=== PATIENT | female | born 1940 | race Caucasian/White ===

== ENCOUNTER 2021-12-30 13:01 | Inpatient (IN) ==
[2021-12-30] MEDS ORDERED: MAGNESIUM HYDROXIDE SUSP 30 ML UDCUP PO PRN (13:34)
[2021-12-30 17:41] LABS: Basophils # 0.1 10*3/uL (0.0-0.2); Basophils % 0.7 % (0.0-0.8); Hematocrit 30.5 VOL% (35.7-47.0); Hemoglobin 9.7 GM/DL (12.0-16.0); Immature Granulocytes % 1.3 %; Immature Granulocytes Absolute 0.13 #; Lymphocytes # 0.8 10*3/uL (1.4-4.0); Lymphocytes % 7.5 % (21.3-54.2); Mean Corpuscular HGB Conc 31.8 GM/DL (32-36); Mean Corpuscular Volume 93.6 FL (87-102); Mean Platelet Volume 9.7 FL (9.6-12.0); Monocytes % 11.1 % (1.7-12.7); Neutrophils % 79.4 % (38.7-73.9); Platelet Count 399 T/CUMM (130-400); Red Blood Count 3.26 MC/CUMM (3.8-5.5); Red Cell Distribution Width 13.3 % (9.3-17.3); White Blood Count 10.1 T/CUMM (4-12)
[2021-12-30] MEDS: DEXTROSE 5% NACL 0.45% 1,000 ML IV SCH (17:45)
[2021-12-30 17:55] LABS: Albumin 2.6 G/DL (3.4-5.0); Bilirubin,Total 0.6 MG/DL (0.20-1.00); Calcium 9.6 MG/DL (8.5-10.1); Osmolality,Calculated 280.8 MOS/KG (273-304); Potassium 3.6 MMOL/L (3.5-5.1); Total Protein 6.8 G/DL (6.4-8.2)
[2021-12-30 19:23] LABS: Bacteria,Urine Occasional /HPF (Few); Bilirubin,Urine Negative (Negative); Blood, Urine Negative (Negative); Glucose,Urine (UA) Negative (Negative); Hyaline Casts,Urine 4 /LPF (0-3); Ketones,Urine Negative (Negative); Nitrite,Urine Negative (Negative); Protein,Urine Negative (Negative); RBC,Urine 6 /HPF (0-4); Squamous Epithelial Cell,Urine Occasional /HPF (0-10); Urine Appearance Clear (Clear); Urine Color Yellow (Yellow); Urine Urobilinogen 0.2 eU/dL (<2.0); Urine pH 5.5 (4.5-8.0)
[2021-12-30 19:24] LABS: Mucus,Urine Occasional /LPF (Occasional)
[2021-12-30 19:25] LABS: Band Neutrophils 34 % (0-10); Lymphocytes 12 % (20-55); Metamyelocytes 6 %; Myelocytes 4 %; Platelet Estimate Normal; Segmented Neutrophils 34 % (50-85); Total Cells Counted 100
[2021-12-30 19:29] LABS: Toxic Granulation 3+
[2021-12-30] MEDS: ENOXAPARIN 30 MG/0.3 ML SYRINGE SUBCUT SCH (21:11)
[2021-12-30] MEDS: FLECAINIDE 50 MG TABLET PO SCH (21:11)
[2021-12-30] MEDS: SPIRONOLACTONE 50 MG TABLET PO SCH (21:12)
[2021-12-30] MEDS: ACETAMINOPHEN 325 MG TABLET PO PRN (21:16)
[2021-12-31] MEDS: VANCOMYCIN 125 MG CAPSULE PO SCH ×4 (00:09→18:09)
[2021-12-31 05:15] LABS: Basophils # 0.1 10*3/uL (0.0-0.2); Basophils % 0.8 % (0.0-0.8); Eosinophils % 0.2 % (0.00-10.9); Hematocrit 25.9 VOL% (35.7-47.0); Hemoglobin 8.3 GM/DL (12.0-16.0); Immature Granulocytes % 1.8 %; Immature Granulocytes Absolute 0.16 #; Lymphocytes % 11.2 % (21.3-54.2); Mean Corpuscular Volume 93.5 FL (87-102); Mean Platelet Volume 9.6 FL (9.6-12.0); Monocytes % 12.3 % (1.7-12.7); Neutrophils % 73.7 % (38.7-73.9); Platelet Count 283 T/CUMM (130-400); Red Blood Count 2.77 MC/CUMM (3.8-5.5); Red Cell Distribution Width 13.2 % (9.3-17.3); White Blood Count 8.7 T/CUMM (4-12)
[2021-12-31 05:40] LABS: Band Neutrophils 9 % (0-10); Hypochromia 1+; Lymphocytes 15 % (20-55); Microcytosis 1+; Platelet Estimate Adequate; Segmented Neutrophils 65 % (50-85); Total Cells Counted 100
[2021-12-31 05:49] LABS: Albumin 1.9 G/DL (3.4-5.0); Bilirubin,Total 0.4 MG/DL (0.20-1.00); Calcium 8.5 MG/DL (8.5-10.1); Osmolality,Calculated 287.5 MOS/KG (273-304); Potassium 3.5 MMOL/L (3.5-5.1); Risk Ratio 2.65; Total Protein 5.2 G/DL (6.4-8.2); VLDL Cholesterol 14.2 MG/DL
[2021-12-31] MEDS: DEXTROSE 5% NACL 0.45% 1,000 ML IV SCH ×2 (06:03→21:42)
[2021-12-31] MEDS: PANTOPRAZOLE 40 MG TABLET PO SCH (06:09)
[2021-12-31] MEDS: SPIRONOLACTONE 50 MG TABLET PO SCH ×2 (08:31→21:43)
[2021-12-31] MEDS: FLECAINIDE 50 MG TABLET PO SCH ×2 (08:31→21:43)
[2021-12-31] MEDS: metroNIDAZOLE INJ 500 MG/100 ML PREMIX IV SCH ×2 (08:36→18:09)
[2021-12-31] MEDS: ONDANSETRON 4 MG/2 ML VIAL IV PRN (15:12)
[2021-12-31] MEDS: ACETAMINOPHEN 325 MG TABLET PO PRN (21:43)
[2021-12-31] MEDS: ENOXAPARIN 30 MG/0.3 ML SYRINGE SUBCUT SCH (21:43)
[2021-12-31] MEDS: ZALEPLON 5 MG CAPSULE PO PRN (21:50)
[2022-01-01] MEDS: VANCOMYCIN 125 MG CAPSULE PO SCH ×4 (00:30→17:41)
[2022-01-01] MEDS: metroNIDAZOLE INJ 500 MG/100 ML PREMIX IV SCH ×3 (00:30→17:41)
[2022-01-01] MEDS: ONDANSETRON 4 MG/2 ML VIAL IV PRN ×2 (00:34→15:02)
[2022-01-01] MEDS: DEXTROSE 5% NACL 0.45% 1,000 ML IV SCH ×4 (05:00→21:30)
[2022-01-01] MEDS: PANTOPRAZOLE 40 MG TABLET PO SCH (05:29)
[2022-01-01 06:01] LABS: Basophils % 0.2 % (0.0-0.8); Eosinophils # 0.1 10*3/uL (0.0-0.87); Eosinophils % 0.8 % (0.00-10.9); Hematocrit 26.6 VOL% (35.7-47.0); Hemoglobin 8.6 GM/DL (12.0-16.0); Immature Granulocytes % 3.1 %; Immature Granulocytes Absolute 0.34 #; Lymphocytes # 0.6 10*3/uL (1.4-4.0); Lymphocytes % 5.2 % (21.3-54.2); Mean Corpuscular HGB Conc 32.3 GM/DL (32-36); Mean Platelet Volume 9.5 FL (9.6-12.0); Monocytes % 9.2 % (1.7-12.7); Neutrophils % 81.5 % (38.7-73.9); Platelet Count 332 T/CUMM (130-400); Red Blood Count 2.86 MC/CUMM (3.8-5.5); Red Cell Distribution Width 13.4 % (9.3-17.3); White Blood Count 10.8 T/CUMM (4-12)
[2022-01-01 06:20] LABS: Albumin 1.6 G/DL (3.4-5.0); Bilirubin,Total 0.5 MG/DL (0.20-1.00); Calcium 8.3 MG/DL (8.5-10.1); Potassium 3.6 MMOL/L (3.5-5.1); Total Protein 4.8 G/DL (6.4-8.2)
[2022-01-01 06:27] LABS: Band Neutrophils 10 % (0-10); Hypochromia Slight; Lymphocytes 6 % (20-55); Myelocytes 1 %; Promyelocytes 1 %; Segmented Neutrophils 76 % (50-85); Total Cells Counted 100
[2022-01-01 06:28] LABS: Microcytosis 1+
[2022-01-01] MEDS: FLECAINIDE 50 MG TABLET PO SCH ×2 (08:19→21:30)
[2022-01-01] MEDS: SPIRONOLACTONE 50 MG TABLET PO SCH ×2 (08:19→21:30)
[2022-01-01] MEDS: ENOXAPARIN 30 MG/0.3 ML SYRINGE SUBCUT SCH (21:30)
[2022-01-01] MEDS: ZALEPLON 5 MG CAPSULE PO PRN (21:32)
[2022-01-02] MEDS: metroNIDAZOLE INJ 500 MG/100 ML PREMIX IV SCH ×3 (00:24→18:14)
[2022-01-02] MEDS: VANCOMYCIN 125 MG CAPSULE PO SCH ×4 (00:24→18:11)
[2022-01-02] MEDS: ONDANSETRON 4 MG/2 ML VIAL IV PRN (00:26)
[2022-01-02 05:16] LABS: Basophils % 0.1 % (0.0-0.8); Eosinophils # 0.3 10*3/uL (0.0-0.87); Eosinophils % 2.3 % (0.00-10.9); Hemoglobin 8.9 GM/DL (12.0-16.0); Immature Granulocytes % 3.6 %; Lymphocytes # 0.3 10*3/uL (1.4-4.0); Lymphocytes % 2.9 % (21.3-54.2); Mean Corpuscular HGB Conc 31.8 GM/DL (32-36); Mean Corpuscular Volume 91.5 FL (87-102); Mean Platelet Volume 9.7 FL (9.6-12.0); Monocytes % 6.1 % (1.7-12.7); Platelet Count 327 T/CUMM (130-400); Red Blood Count 3.06 MC/CUMM (3.8-5.5); Red Cell Distribution Width 13.5 % (9.3-17.3); White Blood Count 11.1 T/CUMM (4-12)
[2022-01-02] MEDS: PANTOPRAZOLE 40 MG TABLET PO SCH (05:46)
[2022-01-02] MEDS: DEXTROSE 5% NACL 0.45% 1,000 ML IV SCH ×3 (05:46→18:13)
[2022-01-02 06:38] LABS: Eosinophils 2 % (0-10); Lymphocytes 8 % (20-55); Platelet Estimate Adequate; Segmented Neutrophils 82 % (50-85); Total Cells Counted 100
[2022-01-02] MEDS: SPIRONOLACTONE 50 MG TABLET PO SCH ×2 (10:09→21:01)
[2022-01-02] MEDS: FLECAINIDE 50 MG TABLET PO SCH (10:09)
[2022-01-02] MEDS: LOSARTAN 50 MG TABLET PO SCH (10:10)
[2022-01-02] MEDS ORDERED: FLECAINIDE 50 MG TABLET PO ONE (11:00)
[2022-01-02] MEDS: ENOXAPARIN 30 MG/0.3 ML SYRINGE SUBCUT SCH (21:01)
[2022-01-02] MEDS: ZALEPLON 5 MG CAPSULE PO PRN (21:01)
[2022-01-02] MEDS: FLECAINIDE 100 MG TABLET PO SCH (21:10)
[2022-01-03] MEDS: ACETAMINOPHEN 325 MG TABLET PO PRN (00:06)
[2022-01-03] MEDS: VANCOMYCIN 125 MG CAPSULE PO SCH ×4 (00:06→17:30)
[2022-01-03] MEDS: metroNIDAZOLE INJ 500 MG/100 ML PREMIX IV SCH ×3 (00:06→18:00)
[2022-01-03] MEDS: DEXTROSE 5% NACL 0.45% 1,000 ML IV SCH ×2 (04:41→19:14)
[2022-01-03] MEDS: PANTOPRAZOLE 40 MG TABLET PO SCH (05:30)
[2022-01-03 06:54] LABS: Basophils # 0.1 10*3/uL (0.0-0.2); Basophils % 0.4 % (0.0-0.8); Eosinophils # 0.4 10*3/uL (0.0-0.87); Eosinophils % 3.8 % (0.00-10.9); Hematocrit 25.9 VOL% (35.7-47.0); Hemoglobin 8.1 GM/DL (12.0-16.0); Immature Granulocytes % 4.8 %; Immature Granulocytes Absolute 0.54 #; Lymphocytes # 0.4 10*3/uL (1.4-4.0); Lymphocytes % 3.2 % (21.3-54.2); Mean Corpuscular HGB Conc 31.3 GM/DL (32-36); Mean Corpuscular Volume 93.8 FL (87-102); Mean Platelet Volume 9.9 FL (9.6-12.0); Monocytes % 6.3 % (1.7-12.7); Neutrophils % 81.5 % (38.7-73.9); Platelet Count 250 T/CUMM (130-400); Red Blood Count 2.76 MC/CUMM (3.8-5.5); Red Cell Distribution Width 13.7 % (9.3-17.3); White Blood Count 11.2 T/CUMM (4-12)
[2022-01-03 07:19] LABS: Band Neutrophils 5 % (0-10); Eosinophils 6 % (0-10); Hypochromia 1+; Lymphocytes 1 % (20-55); Microcytosis 1+; Platelet Estimate Adequate; Segmented Neutrophils 82 % (50-85); Total Cells Counted 100
[2022-01-03 07:26] LABS: Calcium 8.3 MG/DL (8.5-10.1)
[2022-01-03 08:04] LABS: Sedimentation Rate-Westergren 51 MM/HR (0-30)
[2022-01-03] MEDS: FLECAINIDE 100 MG TABLET PO SCH ×2 (09:24→21:03)
[2022-01-03] MEDS: SPIRONOLACTONE 50 MG TABLET PO SCH ×2 (09:24→21:03)
[2022-01-03] MEDS: LOSARTAN 50 MG TABLET PO SCH (09:24)
[2022-01-03] MEDS ORDERED: POTASSIUM CHLORIDE 20 MEQ TABLET PO ONE (11:24)
[2022-01-03] MEDS ORDERED: MAGNESIUM SULF RIDER 4 GM/100 ML PREMIX IV ONE (11:24)
[2022-01-03] MEDS: ENOXAPARIN 30 MG/0.3 ML SYRINGE SUBCUT SCH (21:03)
[2022-01-03] MEDS: ZALEPLON 5 MG CAPSULE PO PRN (21:03)
[2022-01-04] MEDS: metroNIDAZOLE INJ 500 MG/100 ML PREMIX IV SCH ×4 (00:05→23:59)
[2022-01-04] MEDS: VANCOMYCIN 125 MG CAPSULE PO SCH ×5 (00:06→23:57)
[2022-01-04] MEDS: DEXTROSE 5% NACL 0.45% 1,000 ML IV SCH ×2 (04:23→17:30)
[2022-01-04 06:15] LABS: Basophils % 0.3 % (0.0-0.8); Eosinophils # 0.4 10*3/uL (0.0-0.87); Eosinophils % 4.6 % (0.00-10.9); Hematocrit 25.6 VOL% (35.7-47.0); Hemoglobin 8.3 GM/DL (12.0-16.0); Immature Granulocytes % 5.3 %; Immature Granulocytes Absolute 0.51 #; Lymphocytes # 0.5 10*3/uL (1.4-4.0); Lymphocytes % 5.4 % (21.3-54.2); Mean Corpuscular HGB Conc 32.4 GM/DL (32-36); Mean Corpuscular Volume 91.4 FL (87-102); Mean Platelet Volume 9.6 FL (9.6-12.0); Monocytes % 7.1 % (1.7-12.7); Neutrophils % 77.3 % (38.7-73.9); Platelet Count 233 T/CUMM (130-400); Red Cell Distribution Width 13.9 % (9.3-17.3); White Blood Count 9.6 T/CUMM (4-12)
[2022-01-04] MEDS: PANTOPRAZOLE 40 MG TABLET PO SCH (06:31)
[2022-01-04 06:32] LABS: Albumin 1.6 G/DL (3.4-5.0); Bilirubin,Total 0.4 MG/DL (0.20-1.00); Calcium 8.1 MG/DL (8.5-10.1); Osmolality,Calculated 272.8 MOS/KG (273-304); Potassium 3.2 MMOL/L (3.5-5.1); Total Protein 4.7 G/DL (6.4-8.2)
[2022-01-04 06:57] LABS: Band Neutrophils 7 % (0-10); Eosinophils 1 % (0-10); Hypochromia 1+; Lymphocytes 6 % (20-55); Microcytosis 1+; Platelet Estimate Adequate; Segmented Neutrophils 77 % (50-85); Total Cells Counted 100
[2022-01-04] MEDS: SPIRONOLACTONE 50 MG TABLET PO SCH ×2 (09:49→20:57)
[2022-01-04] MEDS: LOSARTAN 50 MG TABLET PO SCH (09:49)
[2022-01-04] MEDS: FLECAINIDE 100 MG TABLET PO SCH ×2 (09:49→20:57)
[2022-01-04] MEDS: ACETAMINOPHEN 325 MG TABLET PO PRN (20:56)
[2022-01-04] MEDS: ZALEPLON 5 MG CAPSULE PO PRN (20:56)
[2022-01-04] MEDS: ENOXAPARIN 30 MG/0.3 ML SYRINGE SUBCUT SCH (20:57)
[2022-01-05] MEDS: ONDANSETRON 4 MG/2 ML VIAL IV PRN (03:47)
[2022-01-05] MEDS: DEXTROSE 5% NACL 0.45% 1,000 ML IV SCH ×3 (03:48→10:12)
[2022-01-05 05:37] LABS: Basophils % 0.3 % (0.0-0.8); Eosinophils # 0.7 10*3/uL (0.0-0.87); Eosinophils % 6.1 % (0.00-10.9); Hematocrit 26.1 VOL% (35.7-47.0); Hemoglobin 8.5 GM/DL (12.0-16.0); Immature Granulocytes % 4.5 %; Immature Granulocytes Absolute 0.48 #; Lymphocytes # 1.2 10*3/uL (1.4-4.0); Lymphocytes % 11.2 % (21.3-54.2); Mean Corpuscular HGB Conc 32.6 GM/DL (32-36); Mean Corpuscular Volume 91.6 FL (87-102); Mean Platelet Volume 9.6 FL (9.6-12.0); Monocytes % 7.5 % (1.7-12.7); Neutrophils % 70.4 % (38.7-73.9); Platelet Count 206 T/CUMM (130-400); Red Blood Count 2.85 MC/CUMM (3.8-5.5); Red Cell Distribution Width 14.1 % (9.3-17.3); White Blood Count 10.7 T/CUMM (4-12)
[2022-01-05] MEDS: VANCOMYCIN 125 MG CAPSULE PO SCH ×3 (05:43→17:20)
[2022-01-05] MEDS: PANTOPRAZOLE 40 MG TABLET PO SCH (05:44)
[2022-01-05 05:58] LABS: Calcium 8.3 MG/DL (8.5-10.1); Osmolality,Calculated 276.5 MOS/KG (273-304); Potassium 2.9 MMOL/L (3.5-5.1)
[2022-01-05 05:59] LABS: Band Neutrophils 5 % (0-10); Eosinophils 5 % (0-10); Hypochromia 1+; Lymphocytes 7 % (20-55); Microcytosis 1+; Platelet Estimate Adequate; Segmented Neutrophils 78 % (50-85); Total Cells Counted 100
[2022-01-05] MEDS: SPIRONOLACTONE 50 MG TABLET PO SCH ×2 (09:20→21:37)
[2022-01-05] MEDS: POTASSIUM CHLORIDE 10 MEQ TABLET PO SCH ×2 (09:20→21:38)
[2022-01-05] MEDS: FLECAINIDE 100 MG TABLET PO SCH ×2 (09:20→21:38)
[2022-01-05] MEDS: metroNIDAZOLE INJ 500 MG/100 ML PREMIX IV SCH (09:20)
[2022-01-05] MEDS: POTASSIUM CHLORIDE RIDER 10 MEQ/100 ML PREMIX IV SCH ×3 (10:27→12:40)
[2022-01-05] MEDS: POTASSIUM CHLORIDE INJ 20 MEQ in DEXTROSE 5% NACL 0.45% 1,000 ML IV SCH ×2 (12:40→20:18)
[2022-01-05] MEDS: metroNIDAZOLE 500 MG TABLET PO SCH ×2 (14:25→21:37)
[2022-01-05] MEDS: LOSARTAN 50 MG TABLET PO SCH (14:28)
[2022-01-05] MEDS ORDERED: FUROSEMIDE 20 MG TABLET PO ONE (19:45)
[2022-01-05] MEDS ORDERED: POTASSIUM CHLORIDE 20 MEQ TABLET PO ONE (19:55)
[2022-01-05] MEDS: ENOXAPARIN 30 MG/0.3 ML SYRINGE SUBCUT SCH (21:38)
[2022-01-06] MEDS: ACETAMINOPHEN 325 MG TABLET PO PRN (01:07)
[2022-01-06] MEDS: VANCOMYCIN 125 MG CAPSULE PO SCH ×2 (01:09→07:15)
[2022-01-06 05:40] LABS: Basophils % 0.2 % (0.0-0.8); Eosinophils # 0.6 10*3/uL (0.0-0.87); Eosinophils % 5.4 % (0.00-10.9); Hematocrit 26.5 VOL% (35.7-47.0); Hemoglobin 8.5 GM/DL (12.0-16.0); Immature Granulocytes % 2.7 %; Immature Granulocytes Absolute 0.27 #; Lymphocytes # 1.8 10*3/uL (1.4-4.0); Lymphocytes % 17.3 % (21.3-54.2); Mean Corpuscular HGB Conc 32.1 GM/DL (32-36); Mean Corpuscular Volume 90.8 FL (87-102); Monocytes % 6.7 % (1.7-12.7); Neutrophils % 67.7 % (38.7-73.9); Platelet Count 217 T/CUMM (130-400); Red Blood Count 2.92 MC/CUMM (3.8-5.5); Red Cell Distribution Width 14.1 % (9.3-17.3); White Blood Count 10.2 T/CUMM (4-12)
[2022-01-06 05:56] LABS: Albumin 1.7 G/DL (3.4-5.0); Bilirubin,Total 0.7 MG/DL (0.20-1.00); Calcium 8.4 MG/DL (8.5-10.1); Potassium 3.5 MMOL/L (3.5-5.1); Total Protein 4.9 G/DL (6.4-8.2)
[2022-01-06] MEDS: PANTOPRAZOLE 40 MG TABLET PO SCH (07:15)
[2022-01-06 08:13] VITALS: BP 125/71
[2022-01-06] MEDS: FLECAINIDE 100 MG TABLET PO SCH (10:23)
[2022-01-06] MEDS: metroNIDAZOLE 500 MG TABLET PO SCH (10:24)
[2022-01-06] MEDS: LOSARTAN 50 MG TABLET PO SCH (10:24)
[2022-01-06] MEDS: POTASSIUM CHLORIDE 10 MEQ TABLET PO SCH (10:25)
[2022-01-06] MEDS: SPIRONOLACTONE 50 MG TABLET PO SCH (10:27)
== END 2022-01-06 10:50 | disposition home or self-care (01) | DRG 372 ==
LOC: N.5E 15:00
PROVIDERS: ADMIT Family Medicine; ATTEND Family Medicine